=== PATIENT | female | born 1970 | race African-American/Black ===

== ENCOUNTER 2021-02-10 08:39 | Day surgery (SDC) | payer OTHER ==
[2021-02-09 09:02] VITALS: BMI 35.9
[2021-02-10 09:05] VITALS: TEMP 98.2
[2021-02-10 10:47] VITALS: BP 121/69; PULSE 77
== END 2021-02-10 10:50 | disposition home or self-care (01) ==
LOC: FASU-ENDO 08:39
PROVIDERS: ATTEND Internal Medicine Gastroenterology
PROC: 0DBN8ZX Excision of Sigmoid Colon, Via Natural or Artificial Opening Endoscopic, Diagnostic (ICD-10-PCS; principal; 2021-02-10 09:54)
DX: Z12.11 Encounter for screening for malignant neoplasm of colon (principal); K63.5 Polyp of colon; R19.4 Change in bowel habit
CPT/HCPCS: 84703